=== PATIENT | male | born 1955 | race Hispanic/Latino ===

== ENCOUNTER 2017-02-01 19:32 | Emergency (ER) | payer OTHER ==
[~2017-02-01] VITALS: Ht 157.5 cm; Wt 59.9 kg
[~2017-02-01 19:32] MED LIST: ASPIRIN CHILDRE81 MG PO; ATORVASTATIN CA20 MG PO; AUGMENTIN 875875 MG PO; AUGMENTIN250 MG/5 M PO; JANUMET 1000 MG1 TAB PO; LANTUS SOLOS100 U/ML SC; LANTUS100 U/ML SC; MOTRIN 600 MG600 MG PO; PERCOCET 325 MG1 TA2 PO; SENOKOT S 50 MG1 TAB PO; TYLENOL TAB 32325 MG PO
[2017-02-01 19:35] VITALS: BP 126/85
[2017-02-01] MEDS ORDERED: JANUMET 50-1,01 EACH PO (20:23)
[2017-02-01] MEDS ORDERED: LEVEMIR FL100 UNIT/1 SC (20:23)
[2017-02-01] MEDS ORDERED: ATORVASTATIN CA20 M1 PO (20:23)
[2017-02-01] MEDS ORDERED: LO-DOSE ASPIRIN81 MG PO (20:23)
[2017-02-01] MEDS ORDERED: IBUPROFEN600 M1 PO (20:24)
[2017-02-01] MEDS ORDERED: BROMFED DM COU118 M1 PO (20:56)
--- NOTE | 2017-02-01 20:57 | ED INFLUENZA/URI COMPLAINT ---
History of Present Illness General Chief Complaint: Upper Respiratory Sx/Fever Stated Complaint: FEVER, SORE THORAT Source: patient Exam Limitations: language barrier Vital Signs & Intake/Output Vital Signs & Intake/Output Vital Signs Date Time Temp Pulse Resp B/P Pulse O2 O2 Flow FiO2 Ox Delivery Rate 02/01 2102 97 Room Air 02/01 193 101.0 96 18 126/85 96 Room Air Allergies Coded Allergies: NO KNOWN ALLERGIES (12/29/14) Reconcile Medications Aspirin (Lo-Dose Aspirin EC) 81 MG TABLET.DR 1 TAB PO DAILY HEART/BLOOD ( Reported) Atorvastatin Calcium 20 MG TABLET 1 TAB PO DAILY CHOLESTEROL (Reported) Brompheniramine/Pseudoephed/Dm (Bromfed Dm Cough Syrup) 2 MG-30 MG-10 MG/5 ML SYRUP 5-10 ML PO Q4-6 PRN PRN cough Ibuprofen 600 MG TABLET 1 TAB PO PRN PAIN/INFLAMMATION (Reported) with food Insulin Detemir (Levemir Flextouch) 100 UNIT/ML (3 ML) INSULN.PEN 20 UNITS SC QAM DM (Reported) Sitagliptin Phos/Metformin HCl (Janumet 50-1,000 MG Tablet) 50 MG-1,000 MG TABLET 1 TAB PO BID DM (Reported) Triage Note: PT TO TRIAGE WITH C/O COUGH WITH GREEN SPUTUM, SORE THROAT, BODY ACHES x1WEEK. TEMP 101.0 IN TRIAGE. PT SERBIAN SPEAKING, FRIEND HERE FOR TRANSLATION. Triage Nurses Notes Reviewed? yes Onset: Abrupt Duration: week(s): (1), constant Timing: recent history Severity: moderate, severe No Modifying Factors: none HPI: 61-year-old male emergency room for further evaluation of cough fever chills and bodyaches is been going on for almost a week. No mucus production. Patient has a history of diabetes. Denies any other associated symptoms. He is Georgian- speaking so history is somewhat limited. Nurse used for translation. There is no complaints of chest pain or shortness of breath. (BEVERLY VILLARREAL) Past History Travel History Traveled to [place] past 21 day No Medical History Any Pertinent Medical History? 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 Hx Contributory? No (BEVERLY VILLARREAL) Review of Systems Review of Systems Constitutional: Reports: see HPI. EENTM: Reports: see HPI. Respiratory: Reports: see HPI. Cardiovascular: Reports: no symptoms. GI: Reports: no symptoms. Genitourinary: Reports: no symptoms. Musculoskeletal: Reports: no symptoms. Skin: Reports: no symptoms. Neurological/Psychological: Reports: no symptoms. Hematologic/Endocrine: Reports: no symptoms. Immunologic/Allergic: Reports: no symptoms. All Other Systems: Reviewed and Negative (BEVERLY VILLARREAL) Physical Exam Physical Exam General Appearance: well developed/nourished, no apparent distress, alert Head: atraumatic, normal appearance Eyes: Bilateral: normal appearance. Ears, Nose, Throat: normal ENT inspection, moist mucous membrane, hearing grossly normal Neck: normal inspection Respiratory: normal breath sounds, no respiratory distress Cardiovascular: regular rate/rhythm Gastrointestinal: soft Back: normal inspection Extremities: normal inspection, normal range of motion Neurologic/Psych: awake, alert, oriented x 3, normal gait Skin: intact, normal color Core Measures Severe Sepsis Present: No Septic Shock Present: No (BEVERLY VILLARREAL) Progress Differential Diagnosis: influenza, meningitis, neutropenia, otitis, pneumonia, pharyngitis, sinusitis Plan of Care: Orders Procedure Date/time Status RAPID VIRAL INFLUENZA A 02/02 2012 Complete THROAT CULTURE W/QUICK STREP 02/01 1942 Active Microbiology 02/01 2010 NASOPHARYN: Influenza Virus A & B Rapid Smear - COMP INFLUENZA TYPE B Initial ED EKG: none Comments: 02/01/2017 9:51:15 PM Patient clinically looks well. Patient is nontoxic-appearing. Patient has a positive flu swab. Patient's symptoms have been going on too long to start on Tamiflu. He does not appear to be in any type of distress. Nurse used for translation and all questions were addressed. Patient understands and agrees a plan of care. Patient will take Motrin and Tylenol at home as needed for fever chills body aches. (BEVERLY VILLARREAL) Departure Departure Disposition: HOME OR SELF CARE Condition: Stable Clinical Impression Primary Impression: Influenza B Referrals: NICOLE VITALE MD (PCP/Family) Additional Instructions: Take Tylenol thousand milligrams 3 times a day for the next 3 days. Take Motrin 800 mg 3 times a day for the next 3 days. Take Bromfed as prescribed. Rest. Drink fluids. No work for the next 3 days. Do not take any other medications for the fever in conjunction with the 2 medications.. Please go over all results of today's visit with your primary care doctor. Contact your primary care doctor to let them know you were here in the emergency room. There may be nonspecific findings which may not be related to your visit today here in the emergency room but may require further evaluation and chronic monitoring by your primary care doctor. If you had a laceration today the chance of foreign body always remains. You should follow-up with your primary care doctor for recheck in 3-5 days for a wound check. If you had an x-ray done there is a chance that a fracture could have been missed on initial read and you should follow-up with your primary care doctor for repeat x-rays if symptoms persist. If your blood pressure was elevated here in the emergency room please have rechecked by her primary care doctor within the next 48 hours by your primary care doctor. If you were prescribed a narcotic here in the emergency room or any type of controlled substances you're not allowed to drive while taking this medication or operate any type of heavy machinery. Narcotics can make you feel lightheaded dizziness nausea and can cause constipation. You may need to pickle sorter a stool softener. Thank you for choosing [facility] emergency room. Please return to the emergency room immediately if you have any other concerns worsening of symptoms. Departure Forms: Customer Survey General Discharge Information Prescriptions: Current Visit Scripts Brompheniramine/Pseudoephed/Dm (Bromfed Dm Cough Syrup) 5-10 ML PO Q4-6 PRN PRN cough #120 ML (BEVERLY VILLARREAL) PA/BOBBIN TRUCKER Co-Sign Statement Statement: ED Attending supervision documentation- [] I saw and evaluated the patient. I have also reviewed all the pertinent lab results and diagnostic results. I agree with the findings and the plan of care as documented in the PA's/BOBBIN TRUCKER's documentation. [x] I have reviewed the ED Record and agree with the PA's/BOBBIN TRUCKER's documentation. [] Additions or exceptions (if any) to the PAs/BOBBIN TRUCKER's note and plan are summarized below: [] (KEO MONTEJO,KATIE Liang)
== END 2017-02-01 21:03 ==
LOC: ERH 19:32
DX: J10.1 Influenza due to other identified influenza virus with other respiratory manifestations (principal)
CPT/HCPCS: 87804; 87804-59